=== PATIENT | female | born 1995 | race African-American/Black ===

== ENCOUNTER 2018-01-12 08:23 | Emergency (ER) | payer OTHER, SELFPAY ==
--- NOTE | 2018-01-12 09:34 | EDPHYS ---
Physician Documentation [facility] Name: Radha Singh Age: 22 yrs Sex: Female : 1995 Arrival Date: 01/12/2018 Time: 08:26 Bed 5 Private MD: None, None ED Physician Clinton Rosa HPI: 01/12 09:27 This 22 yrs old Black Female presents to ER via Ambulatory with complaints of Abscess. rn 09:27 The patient presents with an abscess of the pelvis. Description: The affected area is rn moderate sized, localized, erythematous, fluctuant, swollen, warm. Onset: The symptoms/episode began/occurred 2 day(s) ago. Possible cause(s): unknown. Severity of symptoms: At their worst the symptoms were moderate, in the emergency department the symptoms are unchanged. The patient has not experienced similar symptoms in the past. Pt reports 2 days of painful skin area in groin/pelvis, grew today and more painful, no fever, no trauma, never had abscess before.. 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 - Social history:: Smoking status: Patient/guardian denies using tobacco, Smoking status: Patient/guardian denies using tobacco. - Ebola Screening: : Patient negative for fever greater than or equal to 101.5 degrees Fahrenheit, and additional compatible Ebola Virus Disease symptoms Patient denies exposure to infectious person Patient denies travel to an Ebola-affected area in the 21 days before illness onset No symptoms or risks identified at this time Patient denies travel to an Ebola-affected area in the 21 days before illness onset. - Family history:: not pertinent. - Hospitalizations: : No recent hospitalization is reported. ROS: 09:27 Constitutional: Negative for fever, chills, and weight loss, Skin: + abscess/swollen rn area perineum Exam: 09:27 Constitutional: This is a well developed, well nourished patient who is awake, alert, rn and in no acute distress, antalgic gait Female : area of 3cm fluctuance with tenderness right perineum, does not abut anus or vagina, labia normal, no evidence of bartholin abscess. Vital Signs: 08:47 BP 130 / 65; Pulse 82; Resp 18 S; Temp 98.5; Pulse Ox 100% on R/A; Weight 88.45 kg; iw Height 5 ft. 8 in. (172.72 cm); Pain 10/10; 08:47 Body Mass Index 29.65 (88.45 kg, 172.72 cm) iw Procedures: 09:27 I \T\ D: Incision and drainage was performed for an abscess of the right perineal Prepped rn with Betadine, Anesthetized with 5 ml's 1% Lidocaine w/ Epi. Incised with #11 blade. Drained moderate amount purulent fluid. serosanguinous fluid. Packed with iodoform gauze, Dressing: sterile 4x4 gauze, the patient tolerated the procedure well. MDM: 08:34 Patient medically screened. rn 09:27 Differential diagnosis: abscess, cellulitis. Data reviewed: vital signs, nurses notes, rn and as a result, I will discharge patient. Counseling: I had a detailed discussion with the patient and/or guardian regarding: the historical points, exam findings, and any diagnostic results supporting the discharge/admit diagnosis, the need for outpatient follow up, to return to the emergency department if symptoms worsen or persist or if there are any questions or concerns that arise at home. Response to treatment: the patient's symptoms have markedly improved after treatment, and as a result, I will discharge patient. Special discussion: I discussed with the patient/guardian in detail that at this point there is no indication for admission to the hospital. It is understood, however, that if the symptoms persist or worsen the patient needs to return immediately for re-evaluation. 01/12 09:03 Order name: Incision \T\ Drainage Setup; Complete Time: 09:07 rn Administered Medications: 09:00 Drug: Lidocaine-Epinephrine -1%: (1:100,000) 1 vials {Note: Administered by Dr. Rosa.} ae1 Volume: 20 ml; Route: Infiltration; 09:02 Drug: morphine 4 mg Route: IM; Site: right deltoid; ae1 09:52 Follow up: Response: Pain is decreased ae1 09:02 Drug: Zofran 4 mg Route: PO; ae1 09:53 Follow up: Response: No adverse reaction; no nausea experienced with pain medication ae1 adminstration. Disposition: 01/12/18 09:33 Discharged to Home. Impression: Cutaneous abscess of perineum. - Condition is Stable. - Discharge Instructions: Skin Abscess, Incision and Drainage, Incision and Drainage, Care After. - Prescriptions for Bactrim DS 800- 160 mg Oral Tablet - take 1 tablet by ORAL route every 12 hours for 10 days; 20 tablet. Doxycycline Monohydrate 100 mg Oral Tablet - take 1 tablet by ORAL route every 12 hours for 10 days; 20 tablet. - Medication Reconciliation Form, Thank You Letter, Antibiotic Education, Prescription Opioid Use, Work release form form. - Follow up: Bakari Otero MD; When: 2 - 3 days; Reason: Recheck today's complaints, Re-evaluation by your physician. - Problem is new. - Symptoms have improved. Signatures: Dispatcher [employer] EDShelly Alfred RN HARMONY iw Clinton Rosa MD MD rn Wise, Tara, RN RN tw2 Sanket Ridley RN RN ae1 Corrections: (The following items were deleted from the chart) 08:48 08:47 PSHx: None; tw2 tw2 09:55 09:33 01/12/2018 09:33 Discharged to Home. Impression: Cutaneous abscess of perineum. ae1 Condition is Stable. Forms are Medication Reconciliation Form, Thank You Letter, Antibiotic Education, Prescription Opioid Use. Follow up: Bakari Otero; When: 2 - 3 days; Reason: Recheck today's complaints, Re-evaluation by your physician. Problem is new. Symptoms have improved. rn
--- NOTE | 2018-01-12 09:34 | ER ---
Nurse's Notes [facility] Name: Radha Singh Age: 22 yrs Sex: Female : 1995 Arrival Date: 01/12/2018 Time: 08:26 Bed 5 Private MD: None, None Diagnosis: Cutaneous abscess of perineum Presentation: 01/12 08:39 Presenting complaint: Patient states: abscess to right groin/buttock area since iw yesterday. Transition of care: patient was not received from another setting of care. Onset of symptoms was January 12, 2018. Risk Assessment: Do you want to hurt yourself or someone else? Patient reports no desire to harm self or others. Initial Sepsis Screen: Does the patient meet any 2 criteria? No. Patient's initial sepsis screen is negative. Does the patient have a suspected source of infection? No. Patient's initial sepsis screen is negative. Care prior to arrival: None. 08:39 Method Of Arrival: Ambulatory iw 08:39 Acuity: FELICIANO 3 iw Triage Assessment: 08:50 General: Appears in no apparent distress. uncomfortable, Behavior is cooperative, ae1 anxious. Pain: Complains of pain in right groin area extending to right inner thigh Pain currently is 10 out of 10 on a pain scale. 08:50 EENT: No signs and/or symptoms were reported regarding the EENT system. Neuro: Level of ae1 Consciousness is awake, alert, obeys commands, Oriented to person, place, time, situation. Cardiovascular: Patient's skin is warm and dry. Respiratory: Airway is patent Respiratory effort is even, unlabored, Respiratory pattern is regular, symmetrical. GI: No signs and/or symptoms were reported involving the gastrointestinal system. : Swelling noted to right of vagina in inner groin. Derm: Wound noted right inner groin. Musculoskeletal: Swelling present in redness to the right inner groin. 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 - Social history:: Smoking status: Patient/guardian denies using tobacco, Smoking status: Patient/guardian denies using tobacco. - Ebola Screening: : Patient negative for fever greater than or equal to 101.5 degrees Fahrenheit, and additional compatible Ebola Virus Disease symptoms Patient denies exposure to infectious person Patient denies travel to an Ebola-affected area in the 21 days before illness onset No symptoms or risks identified at this time Patient denies travel to an Ebola-affected area in the 21 days before illness onset. - Family history:: not pertinent. - Hospitalizations: : No recent hospitalization is reported. Screenin:46 Abuse screen: Denies threats or abuse. Nutritional screening: No deficits noted. tw2 Tuberculosis screening: No symptoms or risk factors identified. Fall Risk None identified. Vital Signs: 08:47 BP 130 / 65; Pulse 82; Resp 18 S; Temp 98.5; Pulse Ox 100% on R/A; Weight 88.45 kg; iw Height 5 ft. 8 in. (172.72 cm); Pain 10/10; 08:47 Body Mass Index 29.65 (88.45 kg, 172.72 cm) iw ED Course: 08:26 Patient arrived in ED. mr 08:26 None, None is Private Physician. mr 08:34 Clinton Rosa MD is Attending Physician. rn 08:46 Triage completed. iw 08:47 Arm band placed on. iw 08:50 Placed in gown. Bed in low position. Call light in reach. Side rails up X 1. Pulse ox ae1 on. NIBP on. Warm blanket given. 09:30 Sanket Ridley, HARMONY is Primary Nurse. ae1 09:33 Bakari Otero MD is Referral Physician. rn 09:37 Assist provider with I \T\ D: of an abscess on Set up I\T\D tray. Performed by Clinton Rosa ae 1 Wound packed. Dressing with 4X4s, 1/2 inch packing. Served as tooth inspector and assist. Patient tolerated well. 09:38 Patient did not have IV access during this emergency room visit. ae1 Administered Medications: 09:00 Drug: Lidocaine-Epinephrine -1%: (1:100,000) 1 vials {Note: Administered by Dr. Rosa.} ae1 Volume: 20 ml; Route: Infiltration; 09:02 Drug: morphine 4 mg Route: IM; Site: right deltoid; ae1 09:52 Follow up: Response: Pain is decreased ae1 09:02 Drug: Zofran 4 mg Route: PO; ae1 09:53 Follow up: Response: No adverse reaction; no nausea experienced with pain medication ae1 adminstration. Intake: Outcome: 09:33 Discharge ordered by . rn 09:51 Discharged to home ambulatory. ae1 09:51 Condition: stable 09:51 Discharge instructions given to patient, Instructed on discharge instructions, follow up and referral plans. medication usage, Demonstrated understanding of instructions, Prescriptions given X 2. 09:55 Patient left the ED. ae1 Signatures: Huong Ray Irene, RN RN iw Clitnon Rosa MD MD rn Wise, Tara, RN RN tw2 Sanket Ridley RN RN ae1 Corrections: (The following items were deleted from the chart) 08:48 08:47 PSHx: None; tw2 tw2
[2018-01-12 09:59] VITALS: BP 130/65; TEMP 98.5; O2SAT 100
== END 2018-01-12 09:55 | disposition home or self-care (01) ==
LOC: ER 08:23
PROC: 0W9N0ZZ Drainage of Female Perineum, Open Approach (ICD-10-PCS; principal; 2018-01-12)
DX: L02.215 Cutaneous abscess of perineum (principal)
CPT/HCPCS: 96372; 99284

== ENCOUNTER 2021-09-28 18:46 | Emergency (ER) | payer OTHER ==
--- OUTSIDE RECORDS SUMMARY | 2021-09-28 18:48 | XMS REPORT | Continuity of Care Document ---
:1995 Author Organization [facility] [place] t Address [address] [place] [address] Care Team Providers Name Role Phone Liz Peñaloza Primary Care Physician Cholo Renee MD Attending Clinician Payers Payer Name Policy Type Policy Number Effective Date Expiration Date S ource Advance Directives Directive Decision Effective Termination Comments Source Date Date Healthcare Agents on N/A Univ ersity FileNameRelationshipHealthcare [facility] Agent Medical RelationshipCommunicationPhylane [facility]parentHealth Care [phone] (Mobile) Problems Condition Condition Condition Status Onset Resolution Last Treating Co mments Source Name Details Category Date Date Treatment Clinician Date Nausea/vom Nausea/vom Disease Active 2020-06 U nivers it[place] [facility] [place] Supervisio Supervisio Disease Active 2020-06 U nivers n of high n of high 0-01 ity of risk risk 00:00: [place] 00 [facility] in second in second Bran ch trimester trimester History of History of Disease Active 2020-06 U nivers 0-01 [place] 00 [facility] Branch 25 weeks 25 weeks Disease Active 2020-06 Unive rs gestation gestation 0-01 ity of of of 00:00: [place] 00 [facility] Branch Obesity Obesity Disease Active 2021-0 Univers (BMI (BMI 4-16 ity of 30-39.9) 30-39.9) 00:00: [place] 00 Medical Branch COVID-19 COVID-19 Disease Active Unive rs virus IgG virus IgG 4-02 ity of antibody antibody 00:00: [place] detected detected 00 [facility] [place] Family Family Disease Active Univers history of history of 6-13 it y of diabetes diabetes 00:00: [place] mellitus mellitus [facility] [place] Allergies, Adverse Reactions, Alerts This patient has no known allergies or adverse reactions. Social History Social Habit Start Date Stop Date Quantity Comments Source ASSERTION 2021-02-04 [place] of 00:00:00 [facility] Exposure to Not sure [place] of SARS-CoV-2 [place] [facility] (event) [place] Alcohol intake 2021-09-23 2021-09-23 Ex-drinker [facility] 00:00:00 00:00:00 (finding) [place] [facility] [place] History [facility] 2020-04-06 2020-04-06 99 University o f Alcohol Std 00:00:00 00:00:00 [place] [facility] Drinks Branch History [facility] 2020-04-06 2020-04-06 99 University o f Alcohol Binge 00:00:00 00:00:00 [facility] al Branch History [facility] 2019-09-02 2019-09-02 2 University o f Alcohol Frequency 00:00:00 00:00:00 [facility] [place] edical [place] Alcohol Comment 2018-08-29 2018-08-29 socially Universit y of 00:00:00 00:00:00 [facility] Tobacco use and 2016-12-05 2016-12-05 Never used Universit y of exposure 00:00:00 00:00:00 [facility] Sex Assigned At [birth year] Universit y of 00:00:00 00:00:00 [facility] Smoking Status Start Date Stop Date Source Never smoker [facility] Medications Ordered Filled Start Stop Current Ordering Indication Dosage Frequency Signature Comments Components Source Medication Medication Date Date Medication? Clinician (SIG) Name Name Nitrofurant Yes [id number] 100mg Take 1 Univers oin&Nit. 3-24 capsule by ity o f Macrocryst [place] 100 [place] 00 (two) Medical capsule times Branch daily. metroNIDAZO 2021- No [id number] 500mg Take 1 Univers LE 500 mg 3-24 -01 tablet by ity of tablet 00:00: 00:00 mouth [place] 00 :00 every 12 Medical (twelve) Branch hours. ferrous Yes [id number] 325mg Take 1 Un juan sulfate 325 2-24 tablet by ity of mg (65 mg 00:00: mouth 2 [place] iron) 00 (two) Medical tablet times Branch daily. Yes [id number] 1{tbl} Take 1 Univers vitamin 4-18 tablet by ity of w/FA tablet 00:00: mouth [place] 00 daily. Medical Branch ascorbic Yes [id number] 500mg Take 1 U nivers acid, 1-08 tablet by ity of vitamin C, 00:00: [place] 500 mg 00 (three) Medical tablet times Branch daily. Immunizations Ordered Filled Immunization Date Status Comments [facility] e Immunization Name Name [facility] 2021-08-17 Completed University 00:00:00 [facility] TDAP 2021-08-17 Completed University of 00:00:00 [facility] Influenza Virus 2021-04-22 Completed Universit y of Vaccine Quad IM, 00:00:00 [facility] dical Preserv and ABX Branch Free 6 MO-64 YRS TD 2020-07-29 Completed University of 00:00:00 [facility] Influenza Virus 2020-04-06 Completed Universit y of Vaccine Quad .5 mL 00:00:00 [facility] IM 6+ MO Branch HPV9 2019-09-02 Completed University of 00:00:00 [facility] HPV9 2018-11-05 Completed University of 00:00:00 [facility] HPV9 2018-08-29 Completed University of 00:00:00 [facility] Varicella 2017-08-28 Completed University of (varivax)(chicken 00:00:00 [facility] [place] edical pox) Branch Varicella 2017-07-26 Completed University of (varivax)(chicken 00:00:00 [place] edical pox) Branch TDAP 2017-06-04 Completed University of 00:00:00 [facility] Influenza Virus 2017-03-16 Completed Universit y of Vaccine Quad IM 3+ 00:00:00 [facility] Vital Signs Vital Name Observation Time Observation Value Comments Source Systolic blood 2021-09-23 14:51:00 125 mm[Hg] Univer sity of pressure [facility] Diastolic blood 2021-09-23 14:51:00 77 mm[Hg] Unive rsity of pressure [facility] Heart rate 2021-09-23 14:51:00 104 /min [facility] Body temperature 2021-09-23 14:51:[address] [facility] Respiratory rate 2021-09-23 14:51:00 20 /min [facility] Body height 2021-09-23 14:51:00 172.7 cm [facility] Body weight 2021-09-23 14:51:00 114.488 kg [facility] BMI 2021-09-23 14:51:00 38.38 kg/m2 [facility] Oxygen saturation in 2021-09-23 14:51:00 100 /min [facility] Arterial blood by [facility] Pulse oximetry Branch Procedures Procedure Date / Time Performed Performing Clinician Sourc e POCT URINALYSIS W/O 2021-09-23 14:57:00 AdAlicia garcia [facility] SPECIFIC GRAVITY [facility] Encounters Start End Encounter Admission Attending Care Care Encounter Source Date/Time Date/Time Type Type Clinicians Facility Department ID 2021-09-23 2021-09-23 Routine Adum, [facility] [id number] Univers 09:30:00 10:12:26 Alicia MCKEON [id number] ity of Visit [place] [id number] Samantha ALTAMIRANO [id number] Fl dical REPLACED BY [facility] [address] [facility] Results Test Description Test Time Test Comments Results Result Comments Source POCT URINALYSIS W/O SPECIFIC GRAVITY 2021-09-23 14:58:00 Test Item Value Reference Range Interpretation Comme nts POCT PH U (test code = 3254) 6 mg/dl 5-8 POCT U LEUK EST (test code = 3263) Positive Negative - Negative POCT U NIT (test code = 3262) negative Negative - Negative POCT U PROT (test code = 3259) positive Negative - Negative POCT U GLU (test code = 3256) negative Negative - Negative POCT U KETONE (test code = 3258) negative Negative - Negative POCT U BLD (test code = 3257) positive Negative - Negative [facility]
[2021-09-28] MEDS ORDERED: METOCLOPRAMIDE 10 MG/2mL INJ ONE (20:27)
[2021-09-28] MEDS ORDERED: DIPHENHYDRAMINE 50 MG/ML VIAL ONE (20:27)
[2021-09-28] MEDS ORDERED: MORPHINE 2 MG/ML SYR ONE (20:28)
[2021-09-28] MEDS ORDERED: NA CHLORIDE 0.9% 1,000 ML ONE (20:28)
[2021-09-28] MEDS ORDERED: NA CHLORIDE 0.9% 50 ML ONE (20:28)
[2021-09-28 20:31] LABS: Absolute Lymphocytes (CBC) 1.3 K/uL (0.7-4.9); Hematocrit 29.5 % (36.0-45.0); Lymphocytes % 17.6 % (15.3-44.8); MPV 8.8 fL (7.6-11.3); RBC Red Blood Cell Count 3.39 M/uL (3.86-4.86)
[2021-09-28 20:57] LABS: Urine Blood Negative (Negative); Urine Glucose Negative (Negative); Urine Protein Trace (Negative); Urine Specific Gravity 1.025 (1.005-1.030)
--- NOTE | 2021-09-28 22:31 | RAD REPORT ---
EXAM DESCRIPTION: CT - Head Brain Wo Cont - 09/28/2021 10:25 pm CLINICAL HISTORY: HEADACHE COMPARISON: Head angio dated 09/28/2021 TECHNIQUE: All CT scans are performed using dose optimization technique as appropriate and may inclu de automated exposure control or mA/KV adjustment according to patient size. FINDINGS: No intracranial hemorrhage, hydrocephalus or extra-axial fluid collection.No areas of brai n edema or evidence of midline shift. Cavum septum callosum. The paranasal sinuses and mastoids are clear. The calvarium is intact. IMPRESSION: No acute intracranial abnormality.
[2021-09-28 22:33] LABS: ALT/SGPT 18 U/L (12-78); AST/SGOT 11 U/L (15-37); Albumin 2.4 g/dL (3.4-5.0); Alkaline Phosphatase 108 U/L (45-117); BUN Blood Urea Nitrogen 10 mg/dL (7-18); Bicarbonate 20 mmol/L (21-32); Bilirubin Total 0.2 mg/dL (0.2-1.0); Glucose Level 123 mg/dL (74-106); Potassium 3.7 mmol/L (3.5-5.1); Protein, Total 5.9 g/dL (6.4-8.2); Sodium Level 141 mmol/L (136-145)
--- NOTE | 2021-09-28 22:33 | RAD REPORT ---
EXAM DESCRIPTION: CT - Head angio - 09/28/2021 10:27 pm CLINICAL HISTORY: HEMIPLEGIA COMPARISON: No comparisons TECHNIQUE: CT angiography of the head was performed with MIPs. All CT scans are performed using dose optimization technique as appropriate and may include automated exposure control or mA/KV adjustment according to patient size. FINDINGS: Anterior circulation: No aneurysm or large vessel occlusion. No hemodynamically significant stenosis. No arteriovenous malf ormation identified. Posterior circulation: No aneurysm or large vessel occlusion. No hemodynamically significant stenosis. No arteriovenous malf ormation identified. IMPRESSION: No significant flow abnormality is detected. No aneurysm.
--- NOTE | 2021-09-28 22:37 | EDPHYS ---
Physician Documentation [facility] Name: Radha Mccann Age: 25 yrs Sex: Female : 1995 Arrival Date: 09/28/2021 Time: 18:47 Bed 6 Private MD: ED Physician Baltazar Son HPI: 09/28 20:03 This 25 yrs old Black Female presents to ER via Ambulatory with complaints of Back guilherme Pain, Headache > 24hrs Old. [employer]: 18:54 LMP N/A - currently jd3 Historical: - Allergies: 18:53 NKA; jd3 - Home Meds: 18:53 None [Active]; jd3 - PMHx: 18:53 Ovarian cyst; Pancreatitis; jd3 - PSHx: 18:53 section; jd3 - Immunization history:: Adult Immunizations up to date, Client reports receiving the 2nd dose of the Covid vaccine, Flu vaccine is up to date. - Social history:: Smoking status: Patient denies any tobacco usage or history of. ROS: 20:03 Constitutional: Negative for fever, chills, and weight loss, Eyes: Negative for injury, guilherme pain, redness, and discharge, ENT: Negative for injury, pain, and discharge, Neck: Negative for injury, pain, and swelling, Cardiovascular: Negative for chest pain, palpitations, and edema, Respiratory: Negative for shortness of breath, cough, wheezing, and pleuritic chest pain, Back: Negative for injury and pain, : Negative for injury, bleeding, discharge, and swelling, MS/Extremity: Negative for injury and deformity, Skin: Negative for injury, rash, and discoloration, Psych: Negative for depression, anxiety, suicide ideation, homicidal ideation, and hallucinations, Allergy/Immunology: Negative for hives, rash, and allergies, Endocrine: Negative for neck swelling, polydipsia, polyuria, polyphagia, and marked weight changes, Hematologic/Lymphatic: Negative for swollen nodes, abnormal bleeding, and unusual bruising. 20:03 Abdomen/GI: Positive for abdominal distension, ghravid 36 weeks. a1. Exam: 20:04 Constitutional: This is a well developed, well nourished patient who is awake, alert, guilherme and in no acute distress. Head/Face: Normocephalic, atraumatic. Eyes: Pupils equal round and reactive to light, extra-ocular motions intact. Lids and lashes normal. Conjunctiva and sclera are non-icteric and not injected. Cornea within normal limits. Periorbital areas with no swelling, redness, or edema. ENT: Nares patent. No nasal discharge, no septal abnormalities noted. Tympanic membranes are normal and external auditory canals are clear. Oropharynx with no redness, swelling, or masses, exudates, or evidence of obstruction, uvula midline. Mucous membranes moist. Neck: Trachea midline, no thyromegaly or masses palpated, and no cervical lymphadenopathy. Supple, full range of motion without nuchal rigidity, or vertebral point tenderness. No Meningismus. Chest/axilla: Normal chest wall appearance and motion. Nontender with no deformity. No lesions are appreciated. Cardiovascular: Regular rate and rhythm with a normal S1 and S2. No gallops, murmurs, or rubs. Normal PMI, no JVD. No pulse deficits. Respiratory: Lungs have equal breath sounds bilaterally, clear to auscultation and percussion. No rales, rhonchi or wheezes noted. No increased work of breathing, no retractions or nasal flaring. Back: No spinal tenderness. No costovertebral tenderness. Full range of motion. Skin: Warm, dry with normal turgor. Normal color with no rashes, no lesions, and no evidence of cellulitis. MS/ Extremity: Pulses equal, no cyanosis. Neurovascular intact. Full, normal range of motion. Neuro: Awake and alert, GCS 15, oriented to person, place, time, and situation. Cranial nerves II-XII grossly intact. Motor strength 5/5 in all extremities. Sensory grossly intact. Cerebellar exam normal. Normal gait. Psych: Awake, alert, with orientation to person, place and time. Behavior, mood, and affect are within normal limits. 20:04 Neck: ROM/movement: is normal, no acute changes, limited range of motion, is not appreciated, Meningeal signs: are not present, Kernig's sign is negative, Brudzinski's sign is negative, nuchal rigidity, is not appreciated. 20:04 Abdomen/GI: Inspection: gravid appearance, is noted. Vital Signs: 18:54 BP 116 / 66; Pulse 98; Resp 18 S; Temp 97.6(TE); Pulse Ox 99% on R/A; Weight 113.4 kg jd3 (R); Height 5 ft. 8 in. (172.72 cm) (R); Pain 10/10; 21:00 BP 109 / 60; Pulse 64; Resp 18; Pulse Ox 100% ; vc1 22:00 BP 104 / 62; Pulse 76; Resp 18; Pulse Ox 100% on R/A; vc1 18:54 Body Mass Index 38.01 (113.40 kg, 172.72 cm) jd3 [place] Coma Score: 20:05 Eye Response: spontaneous(4). Verbal Response: oriented(5). Motor Response: obeys [facility] commands(6). Total: 15. MDM: 19:32 Patient medically screened. guilherme 20:05 Differential diagnosis: cluster headache, cerebral vascular accident, intracerebral guilherme hemorrhage, meningitis, meningoencephalitis, migraine, neoplasm, sinusitis, subarachnoid bleed. Data reviewed: vital signs, nurses notes, lab test result(s), EKG, radiologic studies, CT scan. Data interpreted: cardiac monitor technician: rate is 98 beats/min, rhythm is regular, Pulse oximetry: on room air is 99 %. Counseling: I had a detailed discussion with the patient and/or guardian regarding: the historical points, exam findings, and any diagnostic results supporting the discharge/admit diagnosis, lab results, radiology results, the need for outpatient follow up, for definitive care, a neurologist, an OB/Gyne specialist. 09/28 20:03 Order name: CBC with Diff; Complete Time: 21:03 [facility] 09/28 20:03 Order name: Comprehensive Metabolic Panel; Complete Time: 22:36 [facility] 09/28 20:03 Order name: CT Head Brain wo Cont; Complete Time: 22:36 guilherme 09/28 20:03 Order name: CT Head Angio; Complete Time: 22:36 guilherme 09/28 20:57 Order name: Urine Dipstick-Ancillary; Complete Time: 21:03 EDMS 09/28 20:03 Order name: Urine Dipstick-Ancillary (obtain specimen); Complete Time: 20:59 guilherme 09/28 20:03 Order name: FHT's; Complete Time: 21:05 guilherme 09/28 20:03 Order name: Oxygen; Complete Time: 20:35 [facility] Administered Medications: 20:33 Drug: morphine 2 mg Route: IVP; Site: left antecubital; vc1 22:49 Follow up: Response: No adverse reaction; Marked relief of symptoms vc1 20:34 Drug: NS 0.9% 1000 ml Route: IV; Rate: 1 bolus; Site: left antecubital; vc1 22:48 Follow up: IV Status: Completed infusion; IV Intake: 1000ml vc1 20:34 Drug: Reglan (metoCLOPramide) 10 mg Route: IVP; Site: left antecubital; vc1 22:49 Follow up: Response: No adverse reaction vc1 20:34 Drug: Benadryl (diphenhydrAMINE) 50 mg Route: IVP; Site: left antecubital; vc1 22:49 Follow up: Response: No adverse reaction vc1 Disposition Summary: 09/28/21 22:37 Discharge Ordered Location: Home guilherme Problem: new guilherme Symptoms: have improved guilherme Condition: Stable guilherme Diagnosis - Headache guilherme - 36 weeks gestation of guilherme Followup: guilherme - With: Private Physician - When: 2 - 3 days - Reason: Recheck today's complaints, Continuance of care, Re-evaluation by your physician Followup: guilherme - With: - When: 2 - 3 days - Reason: Recheck today's complaints, Continuance of care, Re-evaluation by your physician Discharge Instructions: - Discharge Summary Sheet guilherme - General Headache Without Cause guilherme - General Headache Without Cause, [id number] guilherme - Third Trimester of guilherme - Third Trimester of , [id number] guilherme Forms: - Medication Reconciliation Form guilherme - Thank You Letter guilherme - Antibiotic Education guilherme - Prescription Opioid Use [facility] Prescriptions: - Zofran 4 mg Oral Tablet - take 1 tablet by ORAL route every 12 hours As needed; 20 tablet; Refills: 0, guilherme Product Selection Permitted - Tylenol-Codeine #3 300 mg-30 mg Oral - take 2 tablet by ORAL route every 6 hours; 15 tablet; Refills: 0, Product [facility] Selection Permitted Signatures: Dispatcher [employer] Baltazar Christine MD MD cha Davies, Jonathon, RN RN jd3 Sandra Martinez RN RN vc1 Corrections: (The following items were deleted from the chart) 18:54 18:53 PSHx: None; lydia [email or web address]
--- NOTE | 2021-09-28 22:37 | ER ---
Nurse's Notes [facility] Name: Radha Mccann Age: 25 yrs Sex: Female : 1995 Arrival Date: 09/28/2021 Time: 18:47 Bed 6 Private MD: Diagnosis: Headache;36 weeks gestation of Presentation: 09/28 18:52 Chief complaint: Patient states: "I am 36 weeks . here in the last week or so I jd3 have been having a worsening headache/migraines.". Coronavirus screen: At this time, the client does not indicate any symptoms associated with coronavirus-19. Ebola Screen: No symptoms or risks identified at this time. Initial Sepsis Screen: Does the patient meet any 2 criteria? No. Patient's initial sepsis screen is negative. Does the patient have a suspected source of infection? No. Patient's initial sepsis screen is negative. Risk Assessment: Do you want to hurt yourself or someone else? Patient reports no desire to harm self or others. Onset of symptoms was September 28, 2021. 18:52 Method Of Arrival: Ambulatory jd3 18:52 Acuity: FELICIANO 3 jd3 FLEXIBLE NANNY: 18:54 LMP N/A - currently jd3 Historical: - Allergies: 18:53 NKA; jd3 - Home Meds: 18:53 None [Active]; jd3 - PMHx: 18:53 Ovarian cyst; Pancreatitis; jd3 - PSHx: 18:53 section; jd3 - Immunization history:: Adult Immunizations up to date, Client reports receiving the 2nd dose of the Covid vaccine, Flu vaccine is up to date. - Social history:: Smoking status: Patient denies any tobacco usage or history of. Screenin:00 Abuse screen: Denies threats or abuse. Nutritional screening: No deficits noted. vc1 Tuberculosis screening: No symptoms or risk factors identified. Fall Risk None identified. Assessment: 19:00 General: Appears in no apparent distress. uncomfortable, Behavior is calm, cooperative, vc1 appropriate for age. Pain: Complains of pain in top of head, forehead, right jewish and left jewish Pain does not radiate. Pain currently is 10 out of 10 on a pain scale. Quality of pain is described as dull, pressure, Pain began 7 days ago Alleviated by nothing. Neuro: Level of Consciousness is awake, alert, obeys commands, Oriented to person, place, time, situation, Appropriate for age Gait is steady, Speech is normal, Reports headache in entire that is the "worst ever". Cardiovascular: Patient's skin is warm and dry. Respiratory: Airway is patent Trachea Respiratory effort is even, unlabored, Respiratory pattern is regular, symmetrical. GI: No deficits noted. : No deficits noted. EENT: No deficits noted. Derm: No deficits noted. Musculoskeletal: No deficits noted. 20:00 Reassessment: Patient and/or family updated on plan of care and expected duration. Pain vc1 level reassessed. Patient is alert, oriented x 3, equal unlabored respirations, skin warm/dry/pink. Patient states symptoms have not improved. 20:48 Reassessment: , [place] Mccann, . vc1 21:00 Reassessment: Patient and/or family updated on plan of care and expected duration. Pain vc1 level reassessed. Patient is alert, oriented x 3, equal unlabored respirations, skin warm/dry/pink. Patient states symptoms have improved. 22:00 Reassessment: Patient and/or family updated on plan of care and expected duration. Pain vc1 level reassessed. Patient is alert, oriented x 3, equal unlabored respirations, skin warm/dry/pink. Patient states feeling better. Patient states symptoms have improved. 22:45 Reassessment: Patient and/or family updated on plan of care and expected duration. Pain vc1 level reassessed. Patient is alert, oriented x 3, equal unlabored respirations, skin warm/dry/pink. Patient states feeling better. Patient states symptoms have improved. Vital Signs: 18:54 BP 116 / 66; Pulse 98; Resp 18 S; Temp 97.6(TE); Pulse Ox 99% on R/A; Weight 113.4 kg jd3 (R); Height 5 ft. 8 in. (172.72 cm) (R); Pain 10/10; 21:00 BP 109 / 60; Pulse 64; Resp 18; Pulse Ox 100% ; vc1 22:00 BP 104 / 62; Pulse 76; Resp 18; Pulse Ox 100% on R/A; vc1 18:54 Body Mass Index 38.01 (113.40 kg, 172.72 cm) jd3 Vitals: 21:05 Heart Tones 154 BPM. vc1 [place] Coma Score: 20:05 Eye Response: spontaneous(4). Verbal Response: oriented(5). Motor Response: obeys guilherme commands(6). Total: 15. ED Course: 18:47 Patient arrived in ED. am2 18:53 Triage completed. jd3 18:54 Arm band placed on. jd3 19:00 Patient has correct armband on for positive identification. Bed in low position. Call vc1 light in reach. 19:32 Baltazar Son MD is Attending Physician. guilherme 20:08 Sandra Martinez, HARMONY is Primary Nurse. vc1 22:27 CT Head Brain wo Cont In Process Unspecified. EDMS 22:29 CT Head Angio In Process Unspecified. EDID 22:37 Frankie Harris MD is Referral Physician. [facility] 22:45 No provider procedures requiring assistance completed. IV discontinued, intact, vc1 bleeding controlled, No redness/swelling at site. Pressure dressing applied. Administered Medications: 20:33 Drug: morphine 2 mg Route: IVP; Site: left antecubital; vc1 22:49 Follow up: Response: No adverse reaction; Marked relief of symptoms vc1 20:34 Drug: NS 0.9% 1000 ml Route: IV; Rate: 1 bolus; Site: left antecubital; vc1 22:48 Follow up: IV Status: Completed infusion; IV Intake: 1000ml vc1 20:34 Drug: Reglan (metoCLOPramide) 10 mg Route: IVP; Site: left antecubital; vc1 22:49 Follow up: Response: No adverse reaction vc1 20:34 Drug: Benadryl (diphenhydrAMINE) 50 mg Route: IVP; Site: left antecubital; vc1 22:49 Follow up: Response: No adverse reaction vc1 Intake: 22:48 IV: 1000ml; Total: 1000ml. vc1 Outcome: 22:37 Discharge ordered by . guilherme 22:46 Discharged to home ambulatory. vc1 22:46 Condition: good 22:46 Discharge instructions given to patient, Instructed on discharge instructions, follow up and referral plans. medication usage, Demonstrated understanding of instructions, follow-up care, medications, Prescriptions given X 2. 22:48 Patient left the ED. vc1 Signatures: Dispatcher [employer] EDID Juancho Sony, MD MD guilherme Justice, Ely am2 Hauser, Mamadou, RN RN jd3 Sandra Martinez RN RN vc1 Corrections: (The following items were deleted from the chart) 18:54 18:53 PSHx: None; jd3 jd3
[2021-09-29 06:51] VITALS: TEMP 97.6
[2021-09-29 06:52] VITALS: O2SAT 100
[2021-09-29 06:54] VITALS: BP 104/62
== END 2021-09-28 22:48 | disposition home or self-care (01) ==
LOC: ER 18:46
DX: O26.893 Other specified pregnancy related conditions, third trimester (principal); Z3A.36 36 weeks gestation of pregnancy
CPT/HCPCS: 96361; 85025; 36415; 81003; 80053; 70450; 70496; 96375; 96374; 99284; Q9967; J2765; J1200; J2270; J7030

== ENCOUNTER 2024-05-23 12:23 | Emergency (ER) | payer SELFPAY ==
--- OUTSIDE RECORDS SUMMARY | 2024-05-23 12:29 | XMS REPORT | Continuity of Care Document ---
Author Name Unknown Address [address] [facility]. 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 Name Role Phone PCP, PATIENT DOES NOT HAVE A Primary Care Physic taiwo Unavailable ALICIA RENEE Attending Clinician Unavailable [email or web address]_S Attending Clinician UnavailSHARONDA Jessica Attending Clinician Unavailable Sharonda Bennett PA-C Attending Clinician [phone] Alicia eRnee MD Attending Clinician [phone] Doctor Unassigned, [place] Attending Clinician U navailable Pob, [facility] Main Attending Clinician Unavailyessy booth Only, Adc Test Attending Clinician Unavailable 2, [facility] Attending Clinician Unavailable Kimmie Peñaloza Attending Clinician + Ultrasound, Ang-M[facility] Attending Clinician UnavailKrista Marshall MD Attending Clinician + KRISTA DREW Attending Clinician Unaradu aildonn Nurse, [facility] Attending Clinician Un available Diamante Lawrence MD Attending Clinician [phone] Layla Bryan Attending Clinician [phone] LAYLA JAQRUIN Attending Clinician UnavailRYAN Obrien Attending Clinician Unavail able KIMMIE OSUNA Attending Clinician Unavail able Visit, [facility] Nurse Attending Clinician Elfego Trinidad MD, [place] Attending Clinician + Karel Ochoa MD Attending Clinician [phone] [facility]ending Clinician Unavailable Colby QUIROGA Ryan Rony Attending Clinician [phone] LIGHT SERVICER HELPER, Radha Gtz Attending Clinician [phone] WILMA ORNELAS Attending Clinician Unavailab raudel Ornelas STUDENT SUCCESS ADVISOR, Wilma Urias Attending Clinician [phone] [email or web address] Admitting Clinician Unavaila ALICIA Abarca Admitting Clinician Unavailable Víctor DE LA CRUZ, Alicia Emmanuel Admitting Clinician [phone] Hemanth Trinidad MD, [place] Admitting Clinician + Payers Payer Name Policy Type Policy Number Effective Date Expirati on Date Source [facility] [id number] 2020 00:00:00 HTW-[id number] [id number] 2018 00:00:00 MEDICAID PENDING PENDING 2020 00:00:00 MED[place] [id number] 2020 00:00:00 Problems Condition Name Condition Details Condition Category Status Onset Date Resolution Date Last Treatment Date Treating Clinician Comments Source Liveborn infant, of gaines , born in hospital by delivery Liveborn infant, of gaines , born in hospital by delivery Disease Active 10-21 00:00: 00 [facility] Surgery, elective Surgery, elective Disease Active 10-21 00:00: 00 [facility] Nausea/vom iting in Nausea/vom iting in Disease Active 2020-06 0 00:00: 00 [facility] Supervisio n of high risk in second trimester Supervisio n of high risk in second trimester Disease Active 2020-06 0- 00:00: 00 [facility] History of delivery, currently History of delivery, currently Disease Active 2020-06 0- 00:00: 00 [facility] 25 weeks gestation of 25 weeks gestation of Disease Active 2020-06 0- 00:00: 00 [facility] 39 weeks gestation of 39 weeks gestation of Disease Active 2020-06 0- 00:00: 00 [facility] Obesity (BMI 30-39.9) Obesity (BMI 30-39.9) Disease Active 10-08 00:00: 00 [facility] COVID-19 virus IgG antibody detected COVID-19 virus IgG antibody detected Disease Active 4 00:00: 00 [facility] Family history of diabetes mellitus Family history of diabetes mellitus Disease Active 12-05 00:00: 00 [facility] Allergies, Adverse Reactions, Alerts Allergy Name Allergy Type Status Severity Reaction(s) Onset Date Inactive Date Treating Clinician Comments Source NO KNOWN ALLERGIE S Drug Class Active [facility] Social History Social Habit Start Date Stop Date Quantity Comments Source ASSERTION 2021-02-04 00:00:00 [facility] Exposure to SARS-CoV-2 (event) 2022-04-30 00:00:00 2022-05-10 08:40:[address] [facility] Tobacco use and exposure 2022-05-10 00:00:00 2022-05-10 00:00:00 Smokeless tobacco non-user [facility] Alcohol intake 2022-05-10 00:00:00 2022-05-10 00:00:00 Ex-drinker (finding) [facility] History SDOH Alcohol Std Drinks 2020-04-06 00:00:00 2020-04-06 00:00:[address] [facility] History SDOH Alcohol Binge 2020-04-06 00:00:00 2020-04-06 00:00:[address] [facility] History SDOH Alcohol Frequency 2019-09-02 00:00:00 2019-09-02 00:00:[address] [facility] Alcohol Comment 2018-08-29 00:00:00 2018-08-29 00:00:[address] [facility] Sex Assigned At 1995 00:00:00 1995 00:00:00 [facility] Smoking Status Start Date Stop Date Source Never smoked tobacco [facility] Medications Ordered Medication Name Filled Medication Name Start Date Stop Date Current Medication? Ordering Clinician Indication Dosage Frequency Signature (SIG) Comments Components Source docusate calcium 240 mg capsule 10-22 00:00: 00 Yes [id number] 240mg Take 1 capsule by mouth once daily as needed for Constipati on. [facility] ibuprofen 600 mg tablet 10-22 00:00: 00 Yes [id number] 600mg Take 1 tablet by mouth every 6 (six) hours as needed (Pain). Take with food or milk. [facility] oxyCODONE 5 mg immediate release tablet 10-22 00:00: 00 10-30 04:59 :00 No [id number] 5mg Take 1 tablet by mouth every 6 (six) hours as needed for Pain (scale 7-10) for up to 7 days. Indication s: acute pain [facility] acetaminoph en (TYLENOL) tablet 1,000 mg 10-21 20:00: 00 10-22 08:34 :00 No 1000mg 1,000 mg, Oral, Q6H, 3 doses, First dose on Sun10/21/21 at 1500, Last dose on Sun10/22/21 at 0000, Routine [facility] proMETHazin e (PHENERGAN) 25 mg in NaCl 0.9% (NS) 50 mL IV piggyback 10-21 18:36: 40 Yes 25mg 25 mg, IV Piggyback, Q4HPRN, Starting on Sun10/21/21 at 1336, Until Discontinu ed, Routine, N/V unresponsi ve to Ondansetro n [facility] gabapentin (NEURONTIN) capsule 300 mg 10-21 17:15: 00 Yes 300mg 300 mg, Oral, TID, First dose on Sun10/21/21 at 1215, Until Discontinu ed, Routine [facility] ketorolac (TORADOL) injection 30 mg 10-21 17:00: 00 10-22 11:05 :00 No 30mg 30 mg, Slow IV Push, Q6H, 4 doses, First dose on Sun10/21/21 at 1200, Last dose on Sun10/22/21 at 0600, Routine [facility] lactated ringers IV infusion 1,000 mL 10-21 16:00: 00 10-21 19:56 :00 No 1000mL at 125 mL/hr, 1,000 mL, IV Infusion, ONCE, 1 dose, On Sun10/21/21 at 1100, Routine [facility] simethicone (MYLICON) chewable tablet 125 mg 10-21 15:33: 32 Yes 125mg 125 mg, Oral, PC+HSPRN, Starting on Sun10/21/21 at 1033, Until Discontinu ed, Routine, for gas [facility] sodium chloride 0.9 % irrigation solution 10-21 15:24: 00 Yes PRN, Starting on Sun10/21/21 at 1024, Until Discontinu ed, Intra-op [facility] diphenhydrA MINE (BENADRYL) injection 25 mg 10-21 14:46: 28 Yes 25mg 25 mg, Slow IV Push, Q6HPRN, Starting on Sun10/21/21 at 0946, Until Discontinu ed, Routine, Itching [facility] diphenhydrA MINE (BENADRYL) tablet 25 mg 10-21 14:46: 28 Yes 25mg 25 mg, Oral, Q6HPRN, Starting on Sun10/21/21 at 0946, Until Discontinu ed, Routine, Sleep, Itching [facility] ondansetron (ZOFRAN (PF)) injection 4 mg 10-21 14:46: 28 Yes 4mg 4 mg, Slow IV Push, Q8HPRN, Starting on Sun10/21/21 at 0946, Until Discontinu ed, Routine, Nausea and Vomiting (N/V) [facility] bisacodyL (DULCOLAX) suppository 10 mg 10-21 14:46: 28 Yes 10mg 10 mg, Rectal, QDAILYPRN, Starting on Sun10/21/21 at 0946, Until Discontinu ed, Routine, Constipati on [facility] docusate calcium (SURFAK) capsule 240 mg 10-21 14:46: 28 Yes 240mg 240 mg, Oral, QDAILYPRN, Starting on Sun10/21/21 at 0946, Until Discontinu ed, Routine, Constipati on [facility] magnesium hydroxide (MILK OF MAGNESIA) 400 mg/5 mL suspension 30 mL 10-21 14:46: 28 Yes 30mL 30 mL, Oral, QDAILYPRN, Starting on Sun10/21/21 at 0946, Until Discontinu ed, Routine, Constipati on [facility] lactated ringers IV infusion 500 mL 10-21 11:30: 00 10-21 12:25 :00 No 500mL at 999 mL/hr, 500 mL, IV Infusion, ONCE, 1 dose, On Sun10/21/21 at 0630, Routine [facility] ceFAZolin in 0.9% sodium chloride (ANCEF) 2 gram/100 mL RTU 2 g 10-21 11:28: 11 10-21 13:15 :00 No 2000mg 2 g (2,000 mg), IV Piggyback, O.R. HOLDING ONCE, 1 dose, Starting on Sun10/21/21 at 0628, Until Discontinu ed, Administer over 30 Minutes
Reason for Anti-Infec tive: Surgical Prophylaxi s
Maki rgical Prophylaxi s: BASEBALL SEWER HAND
Duration of therapy: within 24 hours of surgery [facility] sodium citrate-cit melani acid (BICITRA) 500-334 mg/5 mL solution 30 mL 10-21 11:28: 11 10-21 12:58 :00 No 30mL 30 mL, Oral, PRE-PROCED URE ONCE, 1 dose, Starting on Sun10/21/21 at 0628, Until 10/23/21 at 2359, Routine, Surgery/Pr ocedure [facility] cephALEXin 500 mg capsule 10-04 00:00: 00 Yes [id number] 500mg Take 1 capsule by mouth 4 (four) times daily. [facility] Nitrofurant oin&Nit. Macrocryst 100 mg capsule 09-15 00:00: 00 09-30 00:00 :00 No [id number] 100mg Take 1 capsule by mouth 2 (two) times daily. [facility] ferrous sulfate 325 mg (65 mg iron) tablet 08-18 00:00: 00 Yes [id number] 325mg Take 1 tablet by mouth 2 (two) times daily. [facility] vitamin w/FA tablet 10-10 00:00: 00 Yes [id number] 1{tbl} Take 1 tablet by mouth daily. [facility] ascorbic acid, vitamin C, 500 mg tablet 07-02 00:00: 00 Yes [id number] 500mg Take 1 tablet by mouth 3 (three) times daily. [facility] Vital Signs Vital Name Observation Time Observation Value Comments S ource Systolic blood pressure 2022-05-10 14:55:00 111 mm[Hg] [facility] Diastolic blood pressure 2022-05-10 14:55:00 71 mm[Hg] [facility] Heart rate 2022-05-10 14:55:00 80 /min [facility] Body temperature 2022-05-10 14:55:[address] [facility] Respiratory rate 2022-05-10 14:55:00 18 /min [facility] Body height 2022-05-10 14:55:00 172.7 cm [facility] Body weight 2022-05-10 14:55:00 91.627 kg [facility] BMI 2022-05-10 14:55:00 30.71 kg/m2 [facility] Systolic blood pressure 2021-10-28 15:59:00 117 mm[Hg] [facility] Diastolic blood pressure 2021-10-28 15:59:00 82 mm[Hg] [facility] Heart rate 2021-10-28 15:59:00 56 /min [facility] Body temperature 2021-10-28 15:59:[address] [facility] Respiratory rate 2021-10-28 15:59:00 18 /min [facility] Body height 2021-10-28 15:59:00 172.7 cm [facility] Body weight 2021-10-28 15:59:00 113.853 kg [facility] BMI 2021-10-28 15:59:00 38.16 kg/m2 [facility] Systolic blood pressure 2021-10-22 12:40:00 108 mm[Hg] [facility] Diastolic blood pressure 2021-10-22 12:40:00 64 mm[Hg] [facility] Heart rate 2021-10-22 12:40:00 86 /min [facility] Body temperature 2021-10-22 12:40:[address] [facility] Respiratory rate 2021-10-22 12:40:00 18 /min [facility] Oxygen saturation in Arterial blood by Pulse oximetry 2021-10-22 12:40:00 99 /min [facility] Body height 2021-10-21 11:36:00 172.7 cm [facility] Body weight 2021-10-21 11:36:00 116.212 kg [facility] BMI 2021-10-21 11:36:00 38.96 kg/m2 [facility] Systolic blood pressure 2021-10-21 13:00:00 114 mm[Hg] [facility] Diastolic blood pressure 2021-10-21 13:00:00 65 mm[Hg] [facility] Heart rate 2021-10-21 13:00:00 91 /min [facility] Oxygen saturation in Arterial blood by Pulse oximetry 2021-10-21 13:00:00 99 /min [facility] Body temperature 2021-10-21 11:36:[address] [facility] Respiratory rate 2021-10-21 11:36:00 20 /min [facility] Body height 2021-10-21 11:36:00 172.7 cm [facility] Body weight 2021-10-21 11:36:00 116.212 kg [facility] BMI 2021-10-21 11:36:00 38.96 kg/m2 [facility] Systolic blood pressure 2021-10-14 13:55:00 111 mm[Hg] [facility] Diastolic blood pressure 2021-10-14 13:55:00 67 mm[Hg] [facility] Heart rate 2021-10-14 13:55:00 93 /min [facility] Body temperature 2021-10-14 13:55:[address] [facility] Respiratory rate 2021-10-14 13:55:00 18 /min [facility] Body height 2021-10-14 13:55:00 172.7 cm [facility] Body weight 2021-10-14 13:55:00 116.574 kg [facility] BMI 2021-10-14 13:55:00 39.08 kg/m2 [facility] Systolic blood pressure 2021-10-07 15:19:00 115 mm[Hg] [facility] Diastolic blood pressure 2021-10-07 15:19:00 78 mm[Hg] [facility] Heart rate 2021-10-07 15:19:00 75 /min [facility] Body temperature 2021-10-07 15:19:[address] [facility] Respiratory rate 2021-10-07 15:19:00 18 /min [facility] Body height 2021-10-07 15:19:00 172.7 cm [facility] Body weight 2021-10-07 15:19:00 115.214 kg [facility] BMI 2021-10-07 15:19:00 38.62 kg/m2 [facility] Systolic blood pressure 2021-09-30 16:52:00 113 mm[Hg] [facility] Diastolic blood pressure 2021-09-30 16:52:00 64 mm[Hg] [facility] Heart rate 2021-09-30 16:52:00 71 /min [facility] Body temperature 2021-09-30 16:52:[address] [facility] Body height 2021-09-30 16:52:00 172.7 cm [facility] Body weight 2021-09-30 16:52:00 116.937 kg [facility] BMI 2021-09-30 16:52:00 39.20 kg/m2 [facility] Procedures Procedure Date / Time Performed Performing Clinician Source CBC WITH DIFF 2021-10-22 08:35:00 Adum, [facility] CBC WITH DIFF 2021-10-22 08:35:00 Adum, [facility] SECTION 2021-10-21 12:55:00 Adum, [facility] 2021-10-21 12:55:00 Adum, [facility] CBC WITH DIFF 2021-10-21 12:19:00 Adum, Alicia Emmanuel [facility] HEPATITIS B SURFACE ANTIGEN 2021-10-21 12:19:00 Adum, Alicia Emmanuel [facility] HIV 1/2 AG-AB WITH REFLEX 2021-10-21 12:19:00 Adum, Alicia Emmanuel [facility] GALV ONLY - SYPHILIS IGG/IGM 2021-10-21 12:19:00 Adum, Alicia Emmanuel [facility] CBC WITH DIFF 2021-10-21 12:19:00 [facility]um, [facility] HEPATITIS B SURFACE ANTIGEN 2021-10-21 12:19:00 Adum, Alicia Emmanuel [facility] HIV 1/2 AG-AB WITH REFLEX 2021-10-21 12:19:00 Adum, Alicia Emmanuel [facility] GALV ONLY - SYPHILIS IGG/IGM 2021-10-21 12:19:00 Adum, Alicia Emmanuel [facility] ASSIGNMENT OF BENEFITS 2021-10-21 11:11:23 Docto r Unassigned, [place] [facility] CBC WITH DIFF 2021-10-20 13:35:00 Alicia Renee [facility] POCT URINALYSIS W/O SPECIFIC GRAVITY 2021-10-14 00:00:[address] [facility] CONSENT/REFUSAL FOR DIAGNOSIS AND TREATMENT 2021-10-07 16:00:30 Doctor Unassigned, [place] [facility] CONSENT/REFUSAL FOR DIAGNOSIS AND TREATMENT 2021-10-07 16:00:30 Doctor Unassigned, [place] [facility] ASSIGNMENT OF BENEFITS 2021-10-07 15:59:23 Docto r Unassigned, [place] [facility] ASSIGNMENT OF BENEFITS 2021-10-07 15:59:23 Docto r Unassigned, [place] [facility] POCT URINALYSIS W/O SPECIFIC GRAVITY 2021-10-07 00:00:[address] [facility] DME/SUPPLY JUSTIFICATION 2021-10-05 05:01:00 Doc tor Unassigned, [place] [facility] DSU PRE-OP 2021-09-30 05:01:00 Doctor Unass igned, [place] [facility] DSU PRE-OP 2021-09-30 05:01:00 Doctor Unass igned, [place] [facility] POCT URINALYSIS W/O SPECIFIC GRAVITY 2021-09-30 00:00:[address] [facility] Encounters Start Date/Time End Date/Time Encounter Type Admission Type Attending [facility] Care Facility Care Department Encounter ID Source 2021-04-24 13:18:14 Outpatient [facility] [id number] [facility] 2021-04-22 22:15:38 Emergency [facility] [id number] [facility] 2023-05-22 15:30:00 2023-05-22 15:30:00 Outpatient R ALICIA RENEE [facility] [id number] [facility] 2023-04-23 00:00:00 2023-04-23 00:00:00 Outpatient GC_GCBZW_Ka diyala_S [facility] [id number] [facility] 2023-04-22 00:00:00 2023-04-22 00:00:00 Outpatient GC_GCBZW_Ka diyala_S [facility] [id number] [facility] 2022-05-10 09:00:00 2022-05-10 09:50:41 Outpatient R SHARONDA BENNETT [facility] [id number] [facility] 2022-05-10 09:00:00 2022-05-10 09:50:41 Office Visit DevinSharonda barber [facility] 1.2.840.114 350.1.13.10 4.2.7.2.686 [id number] [facility] 2022-05-04 10:00:00 2022-05-04 10:00:00 Outpatient R ADBENITEZ [facility] [id number] [facility] 2022-04-25 00:00:00 2022-04-25 00:00:00 Telephone Adum, Alicia [facility] 1.2.840.114 350.1.13.10 4.2.7.2.686 [id number] [facility] 2021-11-29 08:45:00 2021-11-29 08:45:00 Outpatient R VÍCTOR [facility] [id number] [facility] 2021-10-28 10:45:00 2021-10-28 11:14:28 [facility] [id number] [facility] 2021-10-28 10:45:00 2021-10-28 11:14:28 Routine Visit AdAlicia marquis [facility] 1.2.840.114 350.1.13.10 4.2.7.2.686 [id number] [facility] 2021-10-21 06:26:00 2021-10-22 13:25:00 Inpatient P ADUM [facility] [id number] [facility] 2021-10-21 06:26:00 2021-10-22 13:25:00 Hospital Encounter Alicia Renee [facility] 1.2.840.114 350.1.13.10 4.2.7.2.686 [id number] [facility] 2021-10-21 08:00:00 2021-10-21 09:22:00 Surgery AdAlicia marquis [facility] 1.2.840.114 350.1.13.10 4.2.7.2.686 [id number] [facility] 2021-10-21 00:00:00 2021-10-21 00:00:00 Orders Only Doctor Unassigned, [place] [facility] 1.2.840.114 350.1.13.10 4.2.7.2.686 [id number] [facility] 2021-10-20 08:30:00 2021-10-20 08:45:00 Fabric Sourcer Visit Pob, Adc Lab Main [facility] 1.2.840.114 350.1.13.10 4.2.7.2.686 [id number] [facility] 2021-10-20 08:15:00 2021-10-20 08:30:00 Laboratory Only Only, Adc Test Víctor Alicia [facility] 1.2.840.114 350.1.13.10 4.2.7.2.686 [id number] [facility] 2021-10-20 08:15:00 2021-10-20 08:15:00 Outpatient R LESLEEBENITEZ [facility] [id number] [facility] 2021-10-14 08:45:00 2021-10-14 09:17:24 Outpatient R LESLEEBENITEZ [facility] [id number] [facility] 2021-10-14 08:45:00 2021-10-14 09:17:24 [facility] 1.2.840.114 350.1.13.10 4.2.7.2.686 [id number] [facility] 2021-10-13 00:00:00 2021-10-13 00:00:00 Telephone Adum, Alicia [facility] 1.2.840.114 350.1.13.10 4.2.7.2.686 [id number] [facility] 2021-10-07 10:00:00 2021-10-07 10:46:30 Outpatient R ADUM, ALICIA [facility] [id number] [facility] 2021-10-07 10:00:00 2021-10-07 10:46:30 Routine Visit Adum, Alicia Emmanuel [facility] 1.2.840.114 350.1.13.10 4.2.7.2.686 [id number] [facility] 2021-10-07 10:00:00 2021-10-07 10:00:00 Outpatient R ADUM, ALICIA [facility] [id number] [facility] 2021-10-06 00:00:00 2021-10-06 00:00:00 Telephone Adum, Alicia [facility] 1.2.840.114 350.1.13.10 4.2.7.2.686 [id number] [facility] 2021-10-05 00:00:00 2021-10-05 00:00:00 Telephone Adum, Alicia [facility] 1.2.840.114 350.1.13.10 4.2.7.2.686 [id number] [facility] 2021-10-04 00:00:00 2021-10-04 00:00:00 Case Management Adum, Alicia Emmanuel [facility] 1.2.840.114 350.1.13.10 4.2.7.2.686 [id number] [facility] 2021-09-30 12:45:00 2021-09-30 13:00:00 Fabric Sourcer Visit Pob, Adc Lab Main Adum, Alicia Emmanuel [facility] 1.2.840.114 350.1.13.10 4.2.7.2.686 [id number] [facility] 2021-09-30 12:45:00 2021-09-30 12:45:00 Outpatient R ADUMALICIA [facility] [id number] [facility] 2021-09-30 12:45:00 2021-09-30 12:45:00 Outpatient R ADUM, ALICIA [facility] [id number] [facility] 2021-09-30 11:15:00 2021-09-30 12:11:52 Routine Visit Adum, Ailcia [facility] 1.2.840.114 350.1.13.10 4.2.7.2.686 [id number] [facility] 2021-09-30 11:15:00 2021-09-30 12:11:52 Outpatient R ADUM, ALICIA [facility] [id number] [facility] 2021-09-30 11:15:00 2021-09-30 11:15:00 Outpatient R ADUMALICIA [facility] [id number] [facility] 2021-09-30 00:00:00 2021-09-30 00:00:00 Telephone Adum, Alicia Emmanuel [facility] 1.2.840.114 350.1.13.10 4.2.7.2.686 [id number] [facility] 2021-09-23 09:30:00 2021-09-23 10:12:26 Outpatient R ADALICIA MARQUIS [facility] [id number] [facility] 2021-09-23 09:30:00 2021-09-23 10:12:26 Routine Visit Adbenitez Alicia Emmanuel [facility] 1.2.840.114 350.1.13.10 4.2.7.2.686 [id number] [facility] 2021-09-20 08:45:00 2021-09-20 08:45:00 Outpatient R LESLEEBENITEZ ALICIA [facility] [id number] [facility] 2021-09-15 00:00:00 2021-09-15 00:00:00 Case Management Adbenitez Alicia Emmanuel [facility] 1.2.840.114 350.1.13.10 4.2.7.2.686 [id number] 134 [id number] [facility] 2021-09-15 00:00:00 2021-09-15 00:00:00 Telephone AdAlicia marquis [facility] 1.2.840.114 350.1.13.10 4.2.7.2.686 [id number] 134 [id number] [facility] 2021-09-15 00:00:00 2021-09-15 00:00:00 Case Management AdAlicia marquis [facility] 1.2.840.114 350.1.13.10 4.2.7.2.686 [id number] 134 [id number] [facility] 2021-09-13 14:30:00 2021-09-13 15:21:14 Outpatient R ADBENITEZ ALICIA [facility] [id number] [facility] 2021-09-13 14:30:00 2021-09-13 15:21:14 Routine Visit Adum, Alicia ALTAMIRANO [facility] 1.2.840.114 350.1.13.10 4.2.7.2.686 [id number] 134 [id number] [facility] 2021-09-13 00:00:00 2021-09-13 00:00:00 Telephone Adum, Alicia ALTAMIRANO [facility] 1.2.840.114 350.1.13.10 4.2.7.2.686 [id number] 134 [id number] [facility] 2021-09-02 09:45:00 2021-09-02 10:21:22 Outpatient R ADBENITEZ ALICIA [facility] [id number] [facility] 2021-09-02 09:45:00 2021-09-02 10:21:22 Routine Visit Adum, Alicia [facility] 1.2.840.114 350.1.13.10 4.2.7.2.686 [id number] 134 [id number] [facility] 2021-08-17 10:30:00 2021-08-17 10:30:00 Routine Visit Adum, Alicia [facility] 1.2.840.114 350.1.13.10 4.2.7.2.686 [id number] 134 [id number] [facility] 2021-08-17 10:30:00 2021-08-17 10:30:00 Routine Visit Adum, Alicia [facility] 1.2.840.114 350.1.13.10 4.2.7.2.686 [id number] 134 [id number] [facility] 2021-08-17 10:30:00 2021-08-17 10:14:49 Outpatient R ADUM, ALICIA [facility] [id number] [facility] 2021-08-17 10:30:00 2021-08-17 10:14:49 Outpatient R ADUM, ALICIA [facility] [id number] [facility] 2021-08-17 08:00:00 2021-08-17 08:38:57 Fabric Sourcer Visit 2, Adc Lab Kimmie Osuna [facility] 1.2.840.114 350.1.13.10 4.2.7.2.686 [id number] [facility] 2021-08-17 00:00:00 2021-08-17 00:00:00 Telephone Adum, Alicia Emmanuel [facility] 1.2.840.114 350.1.13.10 4.2.7.2.686 [id number] 134 [id number] [facility] 2021-08-17 00:00:00 2021-08-17 00:00:00 Orders Only Doctor Unassigned, [place] [facility] 1.2.840.114 350.1.13.10 4.2.7.2.686 [id number] [facility] 2021-07-20 10:00:00 2021-07-20 11:07:14 Outpatient R ADUM, ALICIA [facility] [id number] [facility] 2021-07-20 10:00:00 2021-07-20 11:07:14 Routine Visit Adum, Alicia Emmanuel [facility] 1.2.840.114 350.1.13.10 4.2.7.2.686 [id number] 134 [id number] [facility] 2021-06-21 08:45:00 2021-06-21 09:26:06 Outpatient R ADUM, ALICIA [facility] [id number] [facility] 2021-06-21 08:45:00 2021-06-21 09:26:06 Routine Visit Adum, Alicia Emmanuel [facility] 1.2.840.114 350.1.13.10 4.2.7.2.686 [id number] 134 [id number] [facility] 2021-06-03 07:59:40 2021-06-03 08:59:40 Fabric Sourcer Visit Ultrasound, Ephraim Krista Drew Ramsesuvbosilvina [facility] HAND [facility] MATERNAL & [facility] 1..840.114 350.1.13.10 4.2.7.2.686 [id number] [facility] 2021-06-03 08:00:00 2021-06-03 08:00:00 Outpatient P KRISTA DREW [facility] [id number] [facility] 2021-06-01 08:00:21 2021-06-01 08:15:21 Fabric Sourcer Visit 2, [facility].114 350.1.13.10 4.2.7.2.686 [id number] [facility] 2021-06-01 08:15:00 2021-06-01 08:15:00 Outpatient R ADALICIA MARQUIS [facility] [id number] [facility] 2021-05-30 00:00:00 2021-05-30 00:00:00 Telephone Adum, Alicia [facility] 1..840.114 350.1.13.10 4.2.7.2.686 [id number] 134 [id number] [facility] 2021-05-25 09:00:00 2021-05-25 09:38:26 Outpatient R ADALICIA MARQUIS [facility] [id number] [facility] 2021-05-25 08:57:28 2021-05-25 09:38:26 Routine Visit Adum, Alicai [facility] 1..840.114 350.1.13.10 4.2.7.2.686 [id number] 134 [id number] [facility] 2021-05-25 00:00:00 2021-05-25 00:00:00 Case Management Adum, Alicia Emmanuel [facility] 1.2.840.114 350.1.13.10 4.2.7.2.686 [id number] 134 [id number] [facility] 2021-05-02 00:00:00 2021-05-02 00:00:00 Telephone Adum, Alicia Emmanuel [facility] 1.2.840.114 350.1.13.10 4.2.7.2.686 [id number] 134 [id number] [facility] 2021-04-29 08:03:53 2021-04-29 09:19:29 Nurse Visit Nurse, [facility] Adum, Alicia Emmanuel [facility] 1.2.840.114 350.1.13.10 4.2.7.2.686 [id number] 134 [id number] [facility] 2021-04-29 08:00:00 2021-04-29 08:00:00 Outpatient R ADUM, ALICIA [facility] [id number] [facility] 2021-04-26 00:00:00 2021-04-26 00:00:00 Case Management Adum, Alicia Emmanuel [facility] 1.2.840.114 350.1.13.10 4.2.7.2.686 [id number] 134 [id number] [facility] 2021-04-22 08:04:39 2021-04-22 08:50:21 Routine Visit Adum, Alicia Emmanuel [facility] 1.2.840.114 350.1.13.10 4.2.7.2.686 [id number] 134 [id number] [facility] 2021-04-22 08:00:00 2021-04-22 08:50:21 Outpatient R ADBENITEZ, ALICIA [facility] [id number] [facility] 2021-04-22 00:00:00 2021-04-22 00:00:00 Case Management Adbenitez, Alicia Emmanuel [facility] 1.2840.114 350.1.13.10 4.2.7.2.686 [id number] 134 [id number] [facility] 2021-04-15 08:13:38 2021-04-15 08:28:38 Fabric Sourcer Visit 2, Adc Lab Kimmie Osuna [facility] Building 1.2840.114 350.1.13.10 4.2.7.2.686 [id number] [facility] 2021-04-15 08:00:00 2021-04-15 08:00:00 Outpatient R [facility] [id number] [facility] 2021-04-15 00:00:00 2021-04-15 00:00:00 Orders Only Doctor Unassigned, [place] [facility] 1.2840.114 350.1.13.10 4.2.7.2.686 [id number] [facility] 2021-03-29 00:00:00 2021-03-29 00:00:00 Case Management Adum, Alicia Emmanuel [facility] Building 1.2840.114 350.1.13.10 4.2.7.2.686 [id number] 134 [id number] [facility] 2021-03-25 08:22:17 2021-03-25 10:16:57 Initial Visit Víctor AliciaDiamante Griggs [facility] Building 1.2840.114 350.1.13.10 4.2.7.2.686 [id number] 134 [id number] [facility] 2021-03-25 08:30:00 2021-03-25 08:30:00 Outpatient ALICIA ACEVEDO [facility] [id number] [facility] 2021-03-25 00:00:00 2021-03-25 00:00:00 Layla Jerome [facility] MATERNAL & CHILD [facility] 1..840.114 350.1.13.10 4.2.7.2.686 [id number] 107 [id number] [facility] 2021-03-25 00:00:00 2021-03-25 00:00:00 Orders Only Doctor Unassigned, [place] [facility] 1..840.114 350.1.13.10 4.2.7.2.686 [id number] [facility] 2021-03-03 13:15:00 2021-03-03 13:15:00 Outpatient LAYLA BERMAN [facility] [id number] [facility] 2020-12-03 09:20:00 2020-12-03 09:20:00 Outpatient RYAN DODGE [facility] [id number] [facility] 2020-12-02 09:48:49 2020-12-02 10:59:19 Office Visit Layla Jarquin [facility] MATERNAL & CHILD [facility] 1..840.114 350.1.13.10 4.2.7.2.686 [id number] 107 [id number] [facility] 2020-12-02 09:45:00 2020-12-02 09:45:00 Outpatient LAYLA BERMAN [facility] [id number] [facility] 2020-11-23 08:15:00 2020-11-23 08:15:00 Outpatient LAYLA BERMAN [facility] [id number] [facility] 2020-11-01 09:19:36 2020-11-01 09:47:30 Routine Visit Kimmie Osuna [facility] 1.840.114 350.1.13.10 4.2.7.2.686 [id number] 107 [id number] [facility] 2020-11-01 09:15:00 2020-11-01 09:15:00 Outpatient KIMMIE KING [facility] [id number] [facility] 2020-10-18 14:56:00 2020-10-18 15:30:55 Nurse Visit Visit, Ang-Rmchp Nurse Kimmie Osuna [facility] 1.840.114 350.1.13.10 4.2.7.2.686 [id number] 107 [id number] [facility] 2020-10-18 15:00:00 2020-10-18 15:00:00 Outpatient KIMMIE KING [facility] [id number] [facility] 2020-10-08 06:08:00 2020-10-10 12:20:00 [facility] 350.1.13.10 4.2.7.2.686 [id number] [facility] 2020-10-09 07:00:00 2020-10-09 08:38:00 Surgery Karel Ochoa [facility] 1.0.114 350.1.13.10 4.2.7.2.686 [id number] [facility] 2020-10-07 10:04:03 2020-10-07 10:27:24 Routine Visit Layla Jarquin [facility] CH[facility] 1.2840.114 350.1.13.10 4.2.7.2.686 [id number] 107 [id number] [facility] 2020-10-07 10:00:00 2020-10-07 10:00:00 Outpatient R LAYLA JARQUIN [facility] [id number] [facility] 2020-09-30 08:46:29 2020-09-30 09:13:25 Routine Visit Layla Jarquin [facility] 1.2.840.114 350.1.13.10 4.2.7.2.686 [id number] 107 [id number] [facility] 2020-09-30 08:45:00 2020-09-30 08:45:00 Outpatient R LAYLA JARQUIN [facility] [id number] [facility] 2020-09-28 00:00:00 2020-09-28 00:00:00 Telephone Layla Jarquin [facility] HAND [facility] 1..840.114 350.1.13.10 4.2.7.2.686 [id number] 107 [id number] [facility] 2020-09-27 16:00:00 2020-09-27 16:00:00 Outpatient R KIMMIE OSUNA [facility] [id number] [facility] 2020-09-27 11:28:31 2020-09-27 11:36:10 Fabric Sourcer Visit Lab, Ang-Rmchp Kimmie Osuna [facility] CH[facility] 1..840.114 350.1.13.10 4.2.7.2.686 [id number] 107 [id number] [facility] 2020-09-24 00:00:00 2020-09-24 00:00:00 Telephone Layla Jarquin [facility] 1.2.840.114 350.1.13.10 4.2.7.2.686 [id number] 107 [id number] [facility] 2020-09-24 00:00:00 2020-09-24 00:00:00 Telephone Layla Jarquin [facility] 1.2.840.114 350.1.13.10 4.2.7.2.686 [id number] 107 [id number] [facility] 2020-09-23 10:48:37 2020-09-23 11:16:46 Routine Visit Layla Jarquin [facility] SE[facility] HAND [facility] CH[facility] 1.2.840.114 350.1.13.10 4.2.7.2.686 [id number] 107 [id number] [facility] 2020-09-23 10:45:00 2020-09-23 10:45:00 Outpatient R LAYLA JARQUIN [facility] [id number] [facility] 2020-09-14 08:03:45 2020-09-14 08:31:02 Routine Visit Layla Jarquin [facility] CH[facility] 1.2.840.114 350.1.13.10 4.2.7.2.686 [id number] [facility] 2020-09-14 08:00:00 2020-09-14 08:00:00 Outpatient R LAYLA JARQUIN [facility] [id number] [facility] 2020-09-14 00:00:00 2020-09-14 00:00:00 Patient Outreach Ryan Bowman [facility] 1.2.840.114 350.1.13.10 4.2.7.2.686 [id number] [facility] 2020-09-09 10:15:00 2020-09-09 10:15:00 Outpatient R LAYLA JARQUIN [facility] [id number] [facility] 2020-09-02 14:15:00 2020-09-02 14:15:00 Outpatient R LAYLA JARQUIN [facility] [id number] [facility] 2020-09-02 13:15:39 2020-09-02 13:47:14 Routine Visit Layla Jarquin [facility] HAND [facility] MATERNAL & CHILD [facility] 1.840.114 350.1.13.10 4.2.7.2.686 [id number] 107 [id number] [facility] 2020-09-02 13:15:00 2020-09-02 13:15:00 Outpatient R BRITTON LAYLA [facility] [id number] [facility] 2020-08-19 15:42:31 2020-08-19 16:06:39 Routine Visit BrittonLayla Lynn [facility] MATERNAL & CHILD [facility] 1.840.114 350.1.13.10 4.2.7.2.686 [id number] 107 [id number] [facility] 2020-08-19 15:45:00 2020-08-19 15:45:00 Outpatient R LAYLA JARQUIN [facility] [id number] [facility] 2020-08-12 12:45:00 2020-08-12 12:45:00 Outpatient R BRITTON LAYLA [facility] [id number] [facility] 2020-07-29 10:50:28 2020-07-29 11:31:37 Routine Visit BrittonLayla Lynn [facility] 1.84.114 350.1.13.10 4.2.7.2.686 [id number] 107 [id number] [facility] 2020-07-29 10:45:00 2020-07-29 10:45:00 Outpatient R LAYLA JARQUIN [facility] [id number] [facility] 2020-07-20 07:58:59 2020-07-20 08:57:58 Fabric Sourcer Visit Ultrasound, Sangita Leal [facility] MATERNAL & CHILD [facility] 1.840.114 350.1.13.10 4.2.7.2.686 [id number] [facility] 2020-07-20 08:00:00 2020-07-20 08:00:00 Outpatient P [facility] [id number] [facility] 2020-07-02 00:00:00 2020-07-02 00:00:00 Telephone Layla Jarquin [facility] SE[facility] HAND [facility] MATERNAL & CHILD [facility] 1..840.114 350.1.13.10 4.2.7.2.686 [id number] 107 [id number] [facility] 2020-07-01 10:32:20 2020-07-01 10:54:29 Routine Visit Layla Jarquin [facility] 1..840.114 350.1.13.10 4.2.7.2.686 [id number] 107 [id number] [facility] 2020-07-01 10:30:00 2020-07-01 10:30:00 Outpatient R LAYLA JARQUIN [facility] [id number] [facility] 2020-06-03 14:00:00 2020-06-03 14:00:00 Outpatient P [facility] [id number] [facility] 2020-06-01 12:47:36 2020-06-01 13:25:25 Routine Visit Layla Jarquin [facility] SE[facility] HAND [facility] 1..840.114 350.1.13.10 4.2.7.2.686 [id number] 107 [id number] [facility] 2020-06-01 13:00:00 2020-06-01 13:00:00 Outpatient R LAYLA JARQUIN [facility] [id number] [facility] 2020-05-10 00:00:00 2020-05-10 00:00:00 Telephone Layla Jarquin [facility] 1..840.114 350.1.13.10 4.2.7.2.686 [id number] [facility] 2020-05-04 15:21:59 2020-05-04 16:21:12 Routine Visit Layla Jarquin [facility] 1.2840.114 350.1.13.10 4.2.7.2.686 [id number] 107 [id number] [facility] 2020-05-04 15:30:00 2020-05-04 15:30:00 Outpatient R LAYLA JARQUIN [facility] [id number] [facility] 2020-05-04 10:15:00 2020-05-04 10:15:00 Outpatient R LAYLA JARQUIN [facility] [id number] [facility] 2020-04-26 08:13:59 2020-04-26 08:31:30 Fabric Sourcer Visit Lab, Ang-Rmchp Kimmie Osuna [facility] CH[facility] 1.840.114 350.1.13.10 4.2.7.2.686 [id number] 107 [id number] [facility] 2020-04-26 08:00:00 2020-04-26 08:00:00 Outpatient R LAYLA JARQUIN [facility] [id number] [facility] 2020-04-23 13:30:00 2020-04-23 13:30:00 Outpatient R [facility] [id number] [facility] 2020-04-21 00:00:00 2020-04-21 00:00:00 Telephone Layla Jarquin [facility] HAND [facility] 1.2840.114 350.1.13.10 4.2.7.2.686 [id number] 107 [id number] [facility] 2020-04-12 00:00:00 2020-04-12 00:00:00 Telephone Layla Jarquin [facility] SE[facility] HAND [facility] CH[facility] 1.2.840.114 350.1.13.10 4.2.7.2.686 [id number] [facility] 2020-04-06 13:11:16 2020-04-08 09:32:36 Initial Visit Layla Jarquin [facility] HAND [facility] MATERNAL & CHILD [facility] 1.20.114 350.1.13.10 4.2.7.2.686 [id number] 107 [id number] [facility] 2020-04-08 00:00:00 2020-04-08 00:00:00 Orders Only Doctor Unassigned, [place] [facility] 1.2840.114 350.1.13.10 4.2.7.2.686 [id number] [facility] 2020-04-06 13:15:00 2020-04-06 13:15:00 Outpatient R [facility] [id number] [facility] 2020-04-06 13:15:00 2020-04-06 13:15:00 Outpatient R LAYLA JARQUIN [facility] [id number] [facility] 2020-04-06 00:00:00 2020-04-06 00:00:00 Orders Only Doctor Unassigned, [place] [facility] 1.2.114 350.1.13.10 4.2.7.2.686 [id number] [facility] 2020-04-04 10:36:00 2020-04-04 15:58:00 Emergency Radha Anand [facility] 1.2840.114 350.1.13.10 4.2.7.2.686 [id number] [facility] 2020-04-04 00:00:00 2020-04-04 00:00:00 Orders Only Doctor Unassigned, [place] [facility] 1.2840.114 350.1.13.10 4.2.7.2.686 [id number] [facility] 2020-02-17 00:00:00 2020-02-17 00:00:00 Telephone Layla Jarquin [facility] SE[facility]ER HAND [facility] 1.2.840.114 350.1.13.10 4.2.7.2.686 [id number] 107 [id number] [facility] 2020-01-29 10:00:22 2020-01-29 10:35:14 Office Visit Layla Jarquin [facility] MATERNAL & CHILD [facility] 1.2840.114 350.1.13.10 4.2.7.2.686 [id number] [facility] 2020-01-29 10:15:00 2020-01-29 10:15:00 Outpatient R LAYLA JARQUIN [facility] [id number] [facility] 2020-01-29 00:00:00 2020-01-29 00:00:00 Orders Only Doctor Unassigned, [place] [facility] [id number] [id number] [id number] [id number] [facility] 2020-01-27 13:15:00 2020-01-27 13:15:00 Outpatient R LAYLA JARQUIN [facility] [id number] [facility] 2019-12-15 08:30:00 2019-12-15 08:30:00 Outpatient R WILMA ORNELAS [facility] [id number] [facility] 2019-11-20 08:30:00 2019-11-20 08:30:00 Outpatient R WILMA ORNELAS [facility] [id number] [facility] 2019-09-04 00:00:00 2019-09-04 00:00:00 Abstract Wilma Ornelas [facility] MATERNAL & CHILD [facility] [id number] [id number] [id number] [id number] [facility] 2019-09-04 00:00:00 2019-09-04 00:00:00 Telephone Wilma Ornelas [facility] MATERNAL & CHILD [facility] [id number] [id number] [id number] [id number] [facility] 2019-09-02 13:33:52 2019-09-02 14:13:04 Office Visit Wilma Ornelas [facility]ERNAL & [facility] [id number] [id number] [id number] [id number] [facility] 2019-09-02 13:30:00 2019-09-02 13:30:00 Outpatient R WILMA ORNELAS [facility] [id number] [facility] 2019-09-02 00:00:00 2019-09-02 00:00:00 Orders Only Doctor Unassigned, [place] [facility] [facility] [id number] [facility] 2019-09-01 08:15:00 2019-09-01 08:15:00 Outpatient LAYLA BERMAN [facility] [id number] [facility] Results Test Description Test Time Test Comments Results Result Co mments Source [facility] SY[facility] IGG/[id number] 14:59:49* Test Item Value Reference Range Interpretation Comme nts Syphilis IgG/IgM (test code = 51295-3) Non-reactive Non-reactive RODRIGO (test code = RODRIGO) Non-reactive - No serologic evidence of T. pallidum infection. Cannot exclude incubating or early syphilis. Submit a second specimen in 2-4 weeks if syphilis is clinically suspected. Equivocal - Further testing to follow. Reactive - Further testing to follow. Lab Interpretation (test code = 08819-3) Normal [facility] [id number] 09:55:02* Test Item Value Reference Range Interpretation Comme nts WBC (test code = 6690-2) See_Comment [Automated [employer]] The system which generated this result transmitted reference range: 4.30 - 11.10 10*3/?L. The reference range was not used to interpret this result as normal/abnormal. RBC (test code = 789-8) See_Comment L [Automated [employer]] The system which generated this result transmitted reference range: 3.93 - 5.25 10*6/?L. The reference range was not used to interpret this result as normal/abnormal. HGB (test code = 718-7) 10.1 g/dL 11.6-15.0 L HCT (test code = 4544-3) 31.4 % 35.7-45.2 L MCV (test code = 787-2) 91.5 fL 80.6-95.5 MCH (test code = 785-6) 29.4 pg 25.9-32.8 MCHC (test code = 786-4) 32.2 g/dL 31.6-35.1 RDW-SD (test code = 88465-8) 51.0 fL 39.0-49.9 H RDW-CV (test code = 788-0) 15.4 % 12.0-15.5 PLT (test code = 777-3) See_Comment L [Automated [employer]] The system which generated this result transmitted reference range: 166 - 358 10*3/?L. The reference range was not used to interpret this result as normal/abnormal. MPV (test code = 93678-8) 11.4 fL 9.5-12.9 IPF % (test code = 8730505133) 5.1 % 1.3-7.7 Platelet count measured by fluorescence method. NRBC/100 WBC (test code = 2618606943) See_Comment [Automated [employer]] The system which generated this result transmitted reference range: 0.0 - 10.0 /100 WBCs. The reference range was not used to interpret this result as normal/abnormal. NRBC x10^3 (test code = 7425917494) <0.01 See_Comment [Automated [employer]] The system which generated this result transmitted reference range: 10*3/?L. The reference range was not used to interpret this result as normal/abnormal. GRAN MAT (NEUT) % (test code = 770-8) 76.3 % IMM GRAN % (test code = 2020421590) 0.80 % LYMPH % (test code = 736-9) 13.0 % MONO % (test code = 5905-5) 8.9 % EOS % (test code = 713-8) 0.7 % BASO % (test code = 706-2) 0.3 % GRAN MAT x10^3(ANC) (test code = 0372551742) 5.82 10*3/uL 1.88-7.09 IMM GRAN x10^3 (test code = 2188736216) 0.06 10*3/uL 0.00-0.06 LYMPH x10^3 (test code = 731-0) 0.99 10*3/uL 1.32-3.29 L MONO x10^3 (test code = 742-7) 0.68 10*3/uL 0.33-0.92 EOS x10^3 (test code = 711-2) 0.05 10*3/uL 0.03-0.39 BASO x10^3 (test code = 704-7) <0.03 0.01-0.07 Lab Interpretation (test code = 24178-7) Abnormal [facility] with [id number] 09:55:02* Test Item Value Reference Range Interpretation Comme nts WBC (test code = 6690-2) See_Comment [Automated messa ge] The system which generated this result transmitted reference range: 4.30 - 11.10 10*3/?L. The reference range was not used to interpret this result as normal/abnormal. RBC (test code = 789-8) See_Comment L [Automated messa ge] The system which generated this result transmitted reference range: 3.93 - 5.25 10*6/?L. The reference range was not used to interpret this result as normal/abnormal. HGB (test code = 718-7) 10.1 g/dL 11.6-15.0 L HCT (test code = 4544-3) 31.4 % 35.7-45.2 L MCV (test code = 787-2) 91.5 fL 80.6-95.5 MCH (test code = 785-6) 29.4 pg 25.9-32.8 MCHC (test code = 786-4) 32.2 g/dL 31.6-35.1 RDW-SD (test code = 18743-2) 51.0 fL 39.0-49.9 H RDW-CV (test code = 788-0) 15.4 % 12.0-15.5 PLT (test code = 777-3) See_Comment L [[employer]ated [employer]] The system which generated this result transmitted reference range: 166 - 358 10*3/?L. The reference range was not used to interpret this result as normal/abnormal. MPV (test code = 27803-0) 11.4 fL 9.5-12.9 IPF % (test code = 0974639067) 5.1 % 1.3-7.7 Platelet count measured by fluorescence method. NRBC/100 WBC (test code = 6182071014) See_Comment [Automated [employer]] The system which generated this result transmitted reference range: 0.0 - 10.0 /100 WBCs. The reference range was not used to interpret this result as normal/abnormal. NRBC x10^3 (test code = 8525906943) <0.01 See_Comment [[employer]ated [employer]] The system which generated this result transmitted reference range: 10*3/?L. The reference range was not used to interpret this result as normal/abnormal. GRAN MAT (NEUT) % (test code = 770-8) 76.3 % IMM GRAN % (test code = 8717023466) 0.80 % LYMPH % (test code = 736-9) 13.0 % MONO % (test code = 5905-5) 8.9 % EOS % (test code = 713-8) 0.7 % BASO % (test code = 706-2) 0.3 % GRAN MAT x10^3(ANC) (test code = 2967293960) 5.82 10*3/uL 1.88-7.09 IMM GRAN x10^3 (test code = 5053301692) 0.06 10*3/uL 0.00-0.06 LYMPH x10^3 (test code = 731-0) 0.99 10*3/uL 1.32-3.29 L MONO x10^3 (test code = 742-7) 0.68 10*3/uL 0.33-0.92 EOS x10^3 (test code = 711-2) 0.05 10*3/uL 0.03-0.39 BASO x10^3 (test code = 704-7) <0.03 0.01-0.07 Lab Interpretation (test code = 23987-0) Abnormal [facility] B Surface [id number] 20:41:53 * Test Item Value Reference Range Interpretation Comme nts HBsAg Semi-Quantitative (jose t code = 5195-3) Negative Negative [facility] B Surface [id number] 20:41:53 * Test Item Value Reference Range Interpretation Comme nts HBsAg Semi-Quantitative (jose t code = 5195-3) Negative Negative [facility] WITH [id number] 15:08:25* Test Item Value Reference Range Interpretation Comme nts HIV Semi-quantitative (test code = 42364-3) Negative Negative RODRIGO (test code = RODRIGO) Non-reactive for HIV-1 antigen and HIV-1/HIV-2 antibodies. ?No laboratory evidence of HIV infection. ?Repeat in 2-4 weeks if acute HIV infection is suspected. [facility] WITH [id number] 15:08:25* Test Item Value Reference Range Interpretation Comme nts HIV Semi-quantitative (test code = 86521-7) Negative Negative RODRIGO (test code = RODRIGO) Non-reactive for HIV-1 antigen and HIV-1/HIV-2 antibodies. ?No laboratory evidence of HIV infection. ?Repeat in 2-4 weeks if acute HIV infection is suspected. [facility] with Gvwdwgmftfwp3744-03-42 12:32:51* Test Item Value Reference Range Interpretation Comme nts WBC (test code = 6690-2) See_Comment [Automated messa ge] The system which generated this result transmitted reference range: 4.30 - 11.10 10*3/?L. The reference range was not used to interpret this result as normal/abnormal. RBC (test code = 789-8) See_Comment [Automated messa ge] The system which generated this result transmitted reference range: 3.93 - 5.25 10*6/?L. The reference range was not used to interpret this result as normal/abnormal. HGB (test code = 718-7) 11.6 g/dL 11.6-15.0 HCT (test code = 4544-3) 35.1 % 35.7-45.2 L MCV (test code = 787-2) 89.1 fL 80.6-95.5 MCH (test code = 785-6) 29.4 pg 25.9-32.8 MCHC (test code = 786-4) 33.0 g/dL 31.6-35.1 RDW-SD (test code = 62639-0) 49.5 fL 39.0-49.9 RDW-CV (test code = 788-0) 15.3 % 12.0-15.5 PLT (test code = 777-3) See_Comment L [Automated messa ge] The system which generated this result transmitted reference range: 166 - 358 10*3/?L. The reference range was not used to interpret this result as normal/abnormal. MPV (test code = 10038-1) 10.7 fL 9.5-12.9 NRBC/100 WBC (test code = 8454318275) See_Comment [Automated [employer]] The system which generated this result transmitted reference range: 0.0 - 10.0 /100 WBCs. The reference range was not used to interpret this result as normal/abnormal. NRBC x10^3 (test code = 1939924744) <0.01 See_Comment [Automated messa ge] The system which generated this result transmitted reference range: 10*3/?L. The reference range was not used to interpret this result as normal/abnormal. GRAN MAT (NEUT) % (test code = 770-8) 66.6 % IMM GRAN % (test code = 0324639704) 0.80 % LYMPH % (test code = 736-9) 19.6 % MONO % (test code = 5905-5) 11.5 % EOS % (test code = 713-8) 1.3 % BASO % (test code = 706-2) 0.2 % GRAN MAT x10^3(ANC) (test code = 3691514771) 4.07 10*3/uL 1.88-7.09 IMM GRAN x10^3 (test code = 3934282007) 0.05 10*3/uL 0.00-0.06 LYMPH x10^3 (test code = 731-0) 1.20 10*3/uL 1.32-3.29 L MONO x10^3 (test code = 742-7) 0.70 10*3/uL 0.33-0.92 EOS x10^3 (test code = 711-2) 0.08 10*3/uL 0.03-0.39 BASO x10^3 (test code = 704-7) <0.03 0.01-0.07 Lab Interpretation (test code = 68708-1) Abnormal [facility] with [id number] 12:32:51* Test Item Value Reference Range Interpretation Comme nts WBC (test code = 6690-2) See_Comment [Automated messa ge] The system which generated this result transmitted reference range: 4.30 - 11.10 10*3/?L. The reference range was not used to interpret this result as normal/abnormal. RBC (test code = 789-8) See_Comment [Automated messa ge] The system which generated this result transmitted reference range: 3.93 - 5.25 10*6/?L. The reference range was not used to interpret this result as normal/abnormal. HGB (test code = 718-7) 11.6 g/dL 11.6-15.0 HCT (test code = 4544-3) 35.1 % 35.7-45.2 L MCV (test code = 787-2) 89.1 fL 80.6-95.5 MCH (test code = 785-6) 29.4 pg 25.9-32.8 MCHC (test code = 786-4) 33.0 g/dL 31.6-35.1 RDW-SD (test code = 34700-5) 49.5 fL 39.0-49.9 RDW-CV (test code = 788-0) 15.3 % 12.0-15.5 PLT (test code = 777-3) See_Comment L [Automated messa ge] The system which generated this result transmitted reference range: 166 - 358 10*3/?L. The reference range was not used to interpret this result as normal/abnormal. MPV (test code = 31498-1) 10.7 fL 9.5-12.9 NRBC/100 WBC (test code = 2397474417) See_Comment [Automated me ssage] The system which generated this result transmitted reference range: 0.0 - 10.0 /100 WBCs. The reference range was not used to interpret this result as normal/abnormal. NRBC x10^3 (test code = 7989194779) <0.01 See_Comment [Automated messa ge] The system which generated this result transmitted reference range: 10*3/?L. The reference range was not used to interpret this result as normal/abnormal. GRAN MAT (NEUT) % (test code = 770-8) 66.6 % IMM GRAN % (test code = 5577892342) 0.80 % LYMPH % (test code = 736-9) 19.6 % MONO % (test code = 5905-5) 11.5 % EOS % (test code = 713-8) 1.3 % BASO % (test code = 706-2) 0.2 % GRAN MAT x10^3(ANC) (test code = 7040198530) 4.07 10*3/uL 1.88-7.09 IMM GRAN x10^3 (test code = 8633706365) 0.05 10*3/uL 0.00-0.06 LYMPH x10^3 (test code = 731-0) 1.20 10*3/uL 1.32-3.29 L MONO x10^3 (test code = 742-7) 0.70 10*3/uL 0.33-0.92 EOS x10^3 (test code = 711-2) 0.08 10*3/uL 0.03-0.39 BASO x10^3 (test code = 704-7) <0.03 0.01-0.07 Lab Interpretation (test code = 31657-8) Abnormal [facility] URINALYSIS W/O SPECIFIC [id number] 14:08:00* Test Item Value Reference Range Interpretation Comme nts POCT PH U (test code = 3254) n/a 5-8 POCT U LEUK EST (test code = 3263) n/a Negative - N egative POCT U NIT (test code = 3262) n/a Negative - Negati ve POCT U PROT (test code = 3259) neg Negative - Negat tamar POCT U GLU (test code = 3256) neg Negative - Negati ve POCT U KETONE (test code = 3258) n/a Negative - Neg ative POCT U BLD (test code = 3257) n/a Negative - Negati ve [facility] SPECIFIC [id number] 15:21:00* Test Item Value Reference Range Interpretation Comme nts POCT PH U (test code = 3254) n/a 5-8 POCT U LEUK EST (test code = 3263) n/a Negative - N egative POCT U NIT (test code = 3262) n/a Negative - Negati ve POCT U PROT (test code = 3259) neg Negative - Negat tamar POCT U GLU (test code = 3256) neg Negative - Negati ve POCT U KETONE (test code = 3258) n/a Negative - Neg ative POCT U BLD (test code = 3257) n/a Negative - Negati ve [facility]/O SPECIFIC [id number] 16:50:00* Test Item Value Reference Range Interpretation Comme nts POCT PH U (test code = 3254) n/a 5-8 POCT U LEUK EST (test code = 3263) n/a Negative - Negative POCT U NIT (test code = 3262) n/a Negative - Negati ve POCT U PROT (test code = 3259) Negative Negative - Negat tamar POCT U GLU (test code = 3256) Normal Negative - Negati ve POCT U KETONE (test code = 3258) n/a Negative - Neg ative POCT U BLD (test code = 3257) n/a Negative - Negati ve [facility]
--- NOTE | 2024-05-23 13:18 | RAD REPORT ---
EXAMINATION: CT HEAD WITHOUT CONTRAST CT CERVICAL SPINE WITHOUT CONTRAST CLINICAL INDICATION: Head and neck injury status post fall. Head and neck pain TECHNIQUE: Axial CT images from the skull base to the vertex without intravenous contrast. Axial CT i mages through the cervical spine were obtained without intravenous contrast. Sagittal and coronal reformatted images were created from the data set. Coronal and sagittal reformatted images were creat ed from the data set. One or more of the following dose reduction techniques were used: Automated exposure control, adjustment of the mA and/or kV according to patient size, and/or iterative reconstr uction. Unless otherwise specified, incidental findings do not require dedicated imaging follow-up. [id number]. Comparison: Head CT 2021 FINDINGS: An intracranial bleed is not seen. Ventricles are normal in caliber. No significant hypodensity within the brain No extra-axial fluid collection. No fluid within the sinuses/mastoids No fracture or dislocation is seen involving the cervical spine. IMPRESSION: No acute intracranial abnormality noted A cervical fracture is not seen. If the patient continues to have symptoms to suggest acute DIE WELDER/spinal pathology then MRI would be rec ommended
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
[2024-05-23 14:37] VITALS: TEMP 97.4
[2024-05-23 14:42] VITALS: BP 112/78; O2SAT 98
== END 2024-05-23 13:44 | disposition home or self-care (01) ==
LOC: ER 12:23
DX: S09.90XA Unspecified injury of head, initial encounter (principal); S16.1XXA Strain of muscle, fascia and tendon at neck level, initial encounter
CPT/HCPCS: 70450; 72125